=== PATIENT | female | born 1960 | race Caucasian/White ===

== ENCOUNTER 2018-03-12 08:54 | Day surgery (SDC) | payer OTHER ==
[~2018-03-12 08:54] MED LIST: ANAS1 PO; Imitrex50 MG PO; LOPE2C PO; METO10 PO; MORP15ER PO; ONDA4ODT MM; POLY500 PO; Prinivil10 MG PO; Silvadene20 GM TOP; Super Calcium600 MG PO; Vitamin D2000 UNIT PO
== END 2018-03-12 09:05 | disposition home or self-care (01) ==
LOC: ATC 08:54
DX: D70.1 Agranulocytosis secondary to cancer chemotherapy (principal); C20 Malignant neoplasm of rectum; C78.00 Secondary malignant neoplasm of unspecified lung; C79.51 Secondary malignant neoplasm of bone
CPT/HCPCS: 96372; J1447

== ENCOUNTER 2018-03-13 00:02 | Day surgery (SDC) | payer OTHER | END 2018-03-13 09:31 | disposition home or self-care (01) | LOC: ATC 00:02 | DX: D70.1 Agranulocytosis secondary to cancer chemotherapy (principal); C20 Malignant neoplasm of rectum; C78.00 Secondary malignant neoplasm of unspecified lung; C79.51 Secondary malignant neoplasm of bone | CPT/HCPCS: 96372; J1447 ==